=== PATIENT | female | born 1955 | race Caucasian/White ===

== ENCOUNTER 2018-08-02 15:44 | Emergency (ER) | payer OTHER ==
[~2018-08-02] VITALS: Ht 152.4 cm; Wt 59.0 kg
[2018-08-02] MEDS ORDERED: CLINDAMYCIN 600MG / 50ML 50 ML IV ONE (15:56)
[2018-08-02] MEDS ORDERED: SODIUM CHLORIDE 0.9% 1000ML 1,000 ML IV STA (15:56)
[2018-08-02] MEDS ORDERED: MORPHINE SULFATE INJ 4 MG/ML INJ 1ML IV ONE (15:56)
[2018-08-02 16:18] LABS: BASOPHILS # (AUTO) 0.1 (0.0-0.1); BASOPHILS % 0.4 % (0.0-1.0); EOSINOPHILS # (AUTO) 0.1 (0.0-0.4); EOSINOPHILS % 0.8 % (0.0-6.0); HEMATOCRIT 43.6 % (34.2-44.1); HEMOGLOBIN 14.7 g/dL (12.0-16.0); LYMPHOCYTES # (AUTO) 2.6 (1.0-3.2); LYMPHOCYTES % 21.1 % (18.0-39.1); MEAN CORPUSCULAR HGB CONC 33.7 g/dL (31-35); MONOCYTES % 8.3 % (4.4-11.3); NEUTROPHILS # (AUTO) 8.6 (2.1-6.9); NEUTROPHILS % 69.1 % (38.7-80.0); PLATELET COUNT 248 x10e3/uL (140-360); RED BLOOD COUNT 4.45 x10e6/uL (3.6-5.1)
[2018-08-02 16:35] LABS: ALANINE AMINOTRANSFERASE 7 IU/L (0-55); ALBUMIN 4.2 g/dL (3.5-5.0); ALBUMIN/GLOBULIN RATIO 1.2 (0.8-2.0); ALKALINE PHOSPHATASE 152 IU/L (40-150); ANION GAP 15.1 mmol/L (8-16); BLOOD UREA NITROGEN 17 mg/dL (7-26); BUN/CREATININE RATIO 21 (6-25); CALCIUM 9.5 mg/dL (8.4-10.2); CARBON DIOXIDE 24 mmol/L (22-29); CHLORIDE 102 mmol/L (98-107); EST GLOMERULAR FILTRATION RATE > 60 ML/MIN (60-); GLUCOSE 113 mg/dL (74-118); POTASSIUM 4.1 mmol/L (3.5-5.1); SODIUM 137 mmol/L (136-145)
--- NOTE | 2018-08-02 17:40 | Diagnostic Imaging Report ---
History: Nasal abscess Comparison studies: None Technique: Axial images were obtained through the facial region. Coronal and sagittal images reconstructed from the axial data. Dose modulation, iterative reconstruction, and/or weight based adjustment of the mA/kV was utilized to reduce the radiation dose to as low as reasonably achievable. Radiation dose: Total DLP: 380 mGy*cm. Estimated effective dose: DLP x 0.015 Intravenous contrast: 100 cc of Isovue-370. Findings: Soft tissues: Peripherally enhancing 11 mm fluid collection consistent with abscess along the left nasolabial angle, just beneath a left nostril with regional surrounding reactive soft tissue thickening compatible cellulitis. Paranasal sinuses: Mild scattered nonspecific inflammatory mucosal thickening in bilateral ethmoid and sphenoid sinuses. The bilateral maxillary ostia and sphenoethmoidal recesses are narrowed by mucosal thickening. Bilateral frontoethmoidal recesses are patent. Bones: No fractures or bony abnormalities. Orbits: Bilateral lens replacements for previous cataract surgery. No other abnormalities. Included cervical spine: Partially imaged changes of anterior cervical discectomy and fusion (ACDF) at C5-C6. IMPRESSION: Superficial 11 mm abscess at the left nasolabial angle inferior to the left nostril with mild surrounding cellulitis. Signed by: Dr. Terence Wilson M.D. on 08/02/2018 5:37 PM
[2018-08-02] MEDS ORDERED: SODIUM CHLORIDE 0.9% 50ML 50 ML ONE (21:44)
[2018-08-02] MEDS ORDERED: IOPAMIDOL 370 MG/ML 200 ML INFUS..BTL INJ ONE (21:45)
== END 2018-08-02 19:05 | disposition home or self-care (01) ==
LOC: ER 15:44
DX: J34.0 Abscess, furuncle and carbuncle of nose (principal); E11.9 Type 2 diabetes mellitus without complications; E78.5 Hyperlipidemia, unspecified; J44.9 Chronic obstructive pulmonary disease, unspecified; Z88.8 Allergy status to other drugs, medicaments and biological substances
CPT/HCPCS: 36415; 70487; 80053; 83605; 85025; 87040; 87071; 87186; 87205; 99284; J2270; J7030; Q9967

== ENCOUNTER 2018-09-30 05:18 | Observation (INO) | payer OTHER ==
--- NOTE | 2018-09-28 14:10 | Diagnostic Imaging Report ---
EXAMINATION: CHEST 2 VIEWS INDICATION: Pre-operative COMPARISON: None FINDINGS: TUBES and LINES: None. LUNGS: The lung volumes are normal. No focal consolidation or pulmonary edema. Right lower lobe calcified granuloma. PLEURA: No pleural effusion or pneumothorax. HEART AND MEDIASTINUM: The cardiomediastinal silhouette is normal in size and contour. BONES AND SOFT TISSUES: No acute fracture or dislocation. UPPER ABDOMEN: No free air under the diaphragm. IMPRESSION: No focal pneumonia or pulmonary edema. Signed by: Wilda Macedo MD on 09/28/2018 2:07 PM
[2018-09-28 14:13] LABS: BASOPHILS % 0.5 % (0.0-1.0); EOSINOPHILS # (AUTO) 0.1 (0.0-0.4); EOSINOPHILS % 0.6 % (0.0-6.0); HEMATOCRIT 42.9 % (34.2-44.1); LYMPHOCYTES # (AUTO) 1.7 (1.0-3.2); LYMPHOCYTES % 21.4 % (18.0-39.1); MEAN CORPUSCULAR HEMOGLOBIN 32.2 pg (28-32); MEAN CORPUSCULAR HGB CONC 32.6 g/dL (31-35); MEAN CORPUSCULAR VOLUME 98.6 fL (81-99); MONOCYTES # (AUTO) 0.6 (0.2-0.8); MONOCYTES % 7.6 % (4.4-11.3); NEUTROPHILS # (AUTO) 5.6 (2.1-6.9); NEUTROPHILS % 69.5 % (38.7-80.0); PLATELET COUNT 259 x10e3/uL (140-360); RED BLOOD COUNT 4.35 x10e6/uL (3.6-5.1); RED CELL DISTRIBUTION WIDTH 12.1 % (11.7-14.4)
[2018-09-28 14:31] LABS: INR 0.84
[2018-09-28 14:32] LABS: PARTIAL THROMBOPLASTIN TIME 30.5 seconds (23.8-35.5)
[2018-09-28 14:36] LABS: ANION GAP 14.2 mmol/L (8-16); BLOOD UREA NITROGEN 14 mg/dL (7-26); BUN/CREATININE RATIO 22 (6-25); CALCIUM 9.4 mg/dL (8.4-10.2); CARBON DIOXIDE 27 mmol/L (22-29); CHLORIDE 102 mmol/L (98-107); CREATININE, SERUM 0.65 mg/dL (0.57-1.11); EST GLOMERULAR FILTRATION RATE > 60 ML/MIN (60-); GLUCOSE 96 mg/dL (74-118); POTASSIUM 4.2 mmol/L (3.5-5.1); SODIUM 139 mmol/L (136-145)
[2018-09-30] VITALS (7 sets, daily range): BP systolic 97–141; BP diastolic 52–68
[~2018-09-30] VITALS: Ht 152.4 cm; Wt 59.4 kg
[~2018-09-30 05:18] MED LIST: ADVAIR 100-501 EACH INH; BUTALB-CAFF-AC1 EACH PO; CALCIUM PO; CRESTOR10 MG PO; MELATONIN3 MG PO; METFORMIN HCL500 MG PO; NEXIUM40 MG PO; SPRIVIA INH; VENTOLIN HFA18 GM INH; [UNRECOGNIZED DRUG - OTHER] PO
--- OUTSIDE RECORDS SUMMARY | 2018-09-30 05:34 | XMS REPORT ---
Author Author [facility] Address Unknown Phone Unavailable Care Team Providers Care Quality Control Tech [employer] Name Role Phone MANJINDER BAKER Unavailable Unavailable Bharat CAMERON Unavailable Unavailable Problems This patient has no known problems. Allergies, Adverse Reactions, Alerts This patient has no known allergies or adverse reactions. Medications This patient has no known medications. Results Test Description Test Time Test Comments Text Results Atomic Results Result Comments CHEST 2 VIEWS 2018-09-28 14:06:00 [facility] [address] [address] Patient Name: ROSE TOVAR MR #: [id number] : 1955 Age/Sex: 62/F Req #: [id number] Adm Physician: Ordered by: MANJINDER BAKER MD Report #: [id number] Location: OR Room/Bed: Procedure: [id number] DX/CHEST 2 VIEWS Exam Date: 09/28/18 Exam Time: 1335 REPORT STATUS: Signed EXAMINATION: CHEST 2 VIEWS INDICATION: Pre-operative COMPARISON: None FINDINGS: TUBES and LINES: None. LUNGS: The lung volumes are normal. No focal consolidation or pulmonary edema. Right lower lobe calcified granuloma. PLEURA: No pleural effusion or pneumothorax. HEART AND MEDIASTINUM: The cardiomediastinal silhouette is normal in size and contour. BONES AND SOFT TISSUES: No acute fracture or dislocation. UPPER ABDOMEN: No free air under the diaphragm. IMPRESSION: No focal pneumonia or pulmonary edema. Signed by: Barrington Alexis MD on 09/28/2018 2:07 PM Dictated By: BARRINGTON ALEXIS MD 06 Transcribed By: ANNALISA on 09/28/181406 COPY TO: MANJINDER BAKER MD CT MAX FAC/PARANASAL W 2018-08-02 17:24:00 [address] [address] Patient Name: ROSE TOVAR MR #: [id number] : 1955 Age/Sex: 62/F Req #: [id number] Adm Physician: Ordered by: STEVAN RAMIREZ NP Report #: [id number] Location: ER Room/Bed: Procedure: [id number] CT/CT MAX FAC/PARANASAL W Exam Date: 08/02/18 Exam Time: 1704 REPORT STATUS: Signed History: Nasal abscess Comparison studies: None Technique: Axial images were obtained through the facial region. Coronal and sagittal images reconstructed from the axial data. Dose modulation, iterative reconstruction, and/or weight based adjustment of the mA/kV was utilized to reduce the radiation dose to as low as reasonably achievable. Radiation dose: Total DLP: 380 mGy*cm. Estimated effective dose: DLP x 0.015 In travenous contrast: 100 cc of Isovue-370. Findings: Soft tissues: Peripherally enhancing 11 mm fluid collection consistent with abscess along the left nasolabial angle, just beneath a left nostril with regional surrounding reactive soft tissue thickening compatible cellulitis. Paranasal sinuses: Mild scattered nonspecific inflammatory mucosal thickening in bilateral ethmoid and sphenoid sinuses. The bilateral maxillary ostia and sphenoethmoidal recesses are narrowed by mucosal thickening. Bilateral frontoethmoidal recesses are patent. Bones: No fractures or bony abnormalities. Orbits: Bilateral lens replacements for previous cataract surgery. No other abnormalities. Included cervical spine: Partially imaged changes of anterior cervical discectomy and fusion (ACDF) at C5-C6. IMPRESSION: Superficial 11 mm abscess at the left nasolabial angle inferior to the left nostril with mild surrounding cellulitis. Signed by: Dr. Drew Wilson M.D. on 08/02/2018 5:37 PM Dictated By: DREW WILSON MD 1737 Transcribed By: ANNALISA on 08/02/181736 COPY TO: STEVAN RAMIREZ NP
[2018-09-30] MEDS ORDERED: CEFAZOLIN SOD 1 GM/NS 50ML 50 ML IV ONE (06:12)
[2018-09-30] MEDS ORDERED: BUPIVACAINE 0.5%/EPI 30 ML SDV INJ ONE (06:30)
[2018-09-30] MEDS ORDERED: THROMBIN FOR SOLN 5,000 UNIT VIAL ONE (06:30)
[2018-09-30] MEDS ORDERED: BACITRACIN 50,000 UNIT VIAL ONE (06:30)
[2018-09-30] MEDS ORDERED: IBUPROFEN 800MG/ 250ML 250 ML IV ONE (07:08)
[2018-09-30] MEDS ORDERED: LIDOCAINE HCL (LTA) 4 ML SOLN ONE (07:08)
[2018-09-30] MEDS ORDERED: ACETAMINOPHEN 1000 MG/100 ML 100 ML IV ONE (07:08)
--- NOTE | 2018-09-30 07:10 | NUR ---
SPIRITUAL CARE - Pre-Surgery Assessment: Pt in bed. Pt's at bedside. Pt reported supportive attention from family and friends. Intervention: I provided pastoral presence, hospitality, and sympathetic listening. I acquainted pt with availability of rolls mill operator while hospitalized. Outcome: Pt expressed appreciation for visit. No need for follow up indicated at this time. J[facility] Spiritual Care Department O: [phone] Pager: [phone] ([phone] number calling from)
[2018-09-30] MEDS: LACTATED RINGER'S 1,000 ML IV SCH ×2 (09:14→17:34)
[2018-09-30] MEDS ORDERED: ZOLPIDEM TARTRATE 5 MG TAB PO PRN (09:15)
[2018-09-30] MEDS ORDERED: ALBUTEROL SULFATE HFA 8GM INHALATION AEROSOL INH SCH (09:15)
[2018-09-30] MEDS ORDERED: CEPACOL SORE THROAT LOZENGES PO PRN (09:15)
[2018-09-30] MEDS ORDERED: MAGNESIUM/ALUMINUM/SIMETHICONE 30 ML UDC PO PRN (09:15)
[2018-09-30] MEDS ORDERED: ONDANSETRON HCL INJ 2MG/ML 2ML 2 MG/ML VIAL IV PRN (09:15)
[2018-09-30] MEDS ORDERED: ACETAMINOPHEN 325 MG TAB PO PRN (09:15)
[2018-09-30] MEDS ORDERED: HYDROMORPHONE 2MG/ML 2 MG/ML ML IV PRN (09:15)
[2018-09-30] MEDS ORDERED: PROMETHAZINE HCL (IM) 25 MG/ML VIAL IM PRN (09:15)
[2018-09-30] MEDS ORDERED: FENTANYL CITRATE/PF 100MCG/2 ML INJ ONE ×2 (09:30→18:34)
--- NOTE | 2018-09-30 10:25 | NUR ---
Patient admitted to unit from PACU. Patient is post op cervical spine fusion. Soft collar in place with dressing to right side clean and dry. Lung lucio clear to auscultation. Bowel sounds present x4 but hypoactive. Patient ambulates on her own. No c/o pain at this time. Left AC IV in place. Patient voided as soon as she arrived to room.
[2018-09-30] MEDS: OXYCODONE/ACETAMINOPHEN 5-325 1 EACH TABLET PO PRN ×2 (13:00→17:22)
[2018-09-30] MEDS: CARISOPRODOL 350 MG TAB PO PRN ×2 (13:00→17:22)
[2018-09-30] MEDS: CEFAZOLIN SOD 1 GM/NS 50ML 50 ML IV SCH ×2 (13:44→21:08)
--- NOTE | 2018-09-30 15:48 | Operative Report ---
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 PROCEDURES: 1. C6-7 anterior cervical diskectomy and microsurgical osteophyte resection and allograft fusion, 42267. 2. Preparation of MTF corticocancellous allograft, 49026. 3. C6-7 anterior cervical plating with Synthes ZPN plate, 37790. 4. Removal of old C5-6 plate, 49175. 5. Exploration of C5-6 fusion, . ANESTHESIA: General. INDICATIONS: The patient is a woman who has previously undergone C5-6 anterior cervical diskectomy and fusion and plating by oh in the distant past. She now presents with a C6-7 disk herniation with left C7 radiculopathy below the level of her previous C5-6 fusion. She was taken to the operating room for a C6-7 ACDF and removal of the C5-6 plate. DESCRIPTION OF PROCEDURE: After induction of general anesthesia, the patient was placed on the operating table in supine position. The right side of neck was prepped and draped in sterile fashion. The fluoroscopic C-arm was positioned in cross-table lateral orientation. A small transverse incision was created on the right side of neck overlying her previous incision scar. The platysma was divided in line with the incision. A subplatysmal dissection was carried out and avascular plane of dissection was developed medial to the sternocleidomastoid muscle was followed medial to the carotid sheath to the anterior border of the cervical spine. The scar layer overlying the previous C5-6 plate was incised and the plate was exposed. The esophagus was retracted to the left. Each of the four locking screws and each of the four bone screws within the previous C5-6 plate were unscrewed and removed. The plate was mobilized and removed. The underlying C5-6 fusion was explored and found to be solid. Attention was directed to the C6-7 segment. The anterior osteophyte was resected with the [place] rongeur. [place] posts were inserted into C6 and C7 and the [place] distractor was used to distract the disk space. The anterior anulus of the disk was incised with a #11 blade. The contents of the disks were thoroughly evacuated with curettes and pituitary rongeurs. The posterior osteophytes were meticulously drilled with a 2 mm cutting bur on a high-speed drill under the operating microscope until they were completely removed. The posterior anulus of the disk, herniated disk material, and the posterior longitudinal ligament were resected layer by layer until the dura was fully exposed and decompressed. The medial aspects of the uncinate processes were resected bilaterally with particular attention given to the left side to fully expose any compressed origins of the corresponding nerve roots after a large amount of herniated disk material was retrieved and removed from the left C7 neural foramen in this process. After satisfactory decompression had been achieved, the endplates were prepared for fusion. A piece of MTF corticocancellous allograft measuring 9 mm in thickness was selected and prepared in saline and loaded onto a corresponding Synthes ZPN plate. The construct was inserted into the C6-7 disk space under distraction and fluoroscopic guidance. The distraction was released and distraction posts were removed. The plate was screwed to the endplates of C6 and C7 with two pairs of 14 mm screws. All screws were locked. An excellent construct was obtained. The wound was copiously irrigated with bacitracin solution. Meticulous hemostasis was secured. The retractor was removed. The platysma was closed with 3-0 Vicryl sutures. The skin was closed with 4-0 Monocryl sutures in subcuticular fashion. Steri-Strips and dressing were applied. The patient was awakened, extubated, and taken to postanesthesia care unit in stable condition. No intraoperative complications were encountered. The estimated blood loss was 20 mL. Cipriano Gramajo MD PP/[place] /[id number]
[2018-09-30] MEDS: METFORMIN HCL 500 MG TAB PO SCH (17:21)
[2018-09-30] MEDS ORDERED: ONDANSETRON HCL INJ 2MG/ML 2ML 2 MG/ML VIAL ONE (17:39)
[2018-09-30] MEDS ORDERED: GLYCOPYRROLATE 1 MG TAB ONE (17:39)
[2018-09-30] MEDS ORDERED: LIDOCAINE HCL 2% JELLY 5 ML TUBE ONE (17:39)
[2018-09-30] MEDS ORDERED: NEOSTIGMINE 5 MG/5ML SYR ONE (17:39)
[2018-09-30] MEDS ORDERED: DEXAMETHASONE SOD PHOS INJ 4 MG/ML VIAL ONE (18:34)
[2018-09-30] MEDS ORDERED: ACETAMINOPHEN 1000 MG/100 ML IV ONE (18:34)
[2018-09-30] MEDS ORDERED: PROPOFOL IV EMULSION 10 MG/ML 20 ML VIAL ONE (18:34)
[2018-09-30] MEDS ORDERED: ROCURONIUM BROMIDE 10 MG/ML 5ML VIAL ONE (18:34)
[2018-09-30] MEDS ORDERED: MIDAZOLAM HCL 2 MG/2 ML VIAL ONE (18:34)
[2018-09-30] MEDS ORDERED: LIDOCAINE HCL 2% LOCAL INJ 5 ML SDV VIAL INJ ONE (18:34)
[2018-09-30] MEDS ORDERED: SEVOFLURANE INHAL SOLN 250 ML PEN BTL ONE (18:34)
--- NOTE | 2018-09-30 18:55 | NUR ---
BEDSIDE SHIFT REPORT PERFORMED, RECEIVED PT (L) SIDE LAYING SEMI FOWLERS IN BED, AAOX3, RR EVEN AND NON-LABORED, ON ROOM AIR. SOFT COLLAR TO NECK IN PLACE, DRESSING TO (R) ANTERIOR NECK NOTED TO BE CDI. LEFT PT LAYING SEMI FOWLERS IN BED, BED IN LOW LOCKED POSITION, SIDE RAILS UPX2, CALL LIGHT AND PHONE WITHIN REACH.
[2018-09-30] MEDS: SALMETEROL/FLUTICASONE 100/50 INH SCH (19:00)
[2018-09-30] MEDS ORDERED: MELATONIN 3 MG TAB PO SCH (21:00)
[2018-09-30] MEDS ORDERED: SIMVASTATIN 20 MG TAB PO SCH (21:00)
[2018-09-30] MEDS: MORPHINE SULFATE INJ 10 MG/ML IM PRN (21:00)
[2018-10-01] VITALS: BP 102/59
[2018-10-01] MEDS: SALMETEROL/FLUTICASONE 100/50 INH SCH ×2 (00:49→06:42)
[2018-10-01] MEDS: MORPHINE SULFATE INJ 10 MG/ML IM PRN ×2 (01:05→04:34)
[2018-10-01] MEDS ORDERED: NORCO 7.5-3251 EACH PO ×2 (01:24→07:39)
[2018-10-01] MEDS: LACTATED RINGER'S 1,000 ML IV SCH (01:54)
[2018-10-01 04:00] VITALS: BP 104/49
[2018-10-01] MEDS ORDERED: TIOTROPIUM 18 MCG INH POWDER INH SCH (06:00)
[2018-10-01] MEDS: CEFAZOLIN SOD 1 GM/NS 50ML 50 ML IV SCH (06:09)
[2018-10-01] MEDS: OXYCODONE/ACETAMINOPHEN 5-325 1 EACH TABLET PO PRN (06:10)
[2018-10-01] MEDS: CARISOPRODOL 350 MG TAB PO PRN (06:10)
--- NOTE | 2018-10-01 06:40 | NUR ---
rounded with proofreader nurse, patient leaving unit for xray. alert and oriented and in no distress
--- NOTE | 2018-10-01 07:34 | Diagnostic Imaging Report ---
Radiographs of the cervical spine - 2 views HISTORY: Pain COMPARISON: June 02, 2008 FINDINGS: Bones: No acute displaced fracture. Osseous alignment is within normal limits. Joints: Patient status post anterior fusion at C6/7 with intervertebral body spacer material. The surgical hardware is intact without evidence of failure or loosening. Scattered degenerative change. Soft tissues: The soft tissues appear unremarkable. IMPRESSION: Patient status post anterior fusion at C6/7 with intervertebral body spacer material. The surgical hardware is intact without evidence of failure or loosening. Scattered degenerative change. Signed by: Dr. Darrick Garcia M.D. on 10/01/2018 7:30 AM
[2018-10-01 08:05] VITALS: BP 112/56
[2018-10-01] MEDS: METFORMIN HCL 500 MG TAB PO SCH (08:05)
[2018-10-01 08:24] VITALS: BP 112/56
[2018-10-01] MEDS ORDERED: SIMVASTATIN 40 MG TAB PO SCH (09:00)
[2018-10-01] MEDS ORDERED: [UNRECOGNIZED DRUG - OTHER] PO SCH (09:00)
[2018-10-01] MEDS ORDERED: CALCIUM PO SCH (09:00)
[2018-10-01] MEDS ORDERED: PANTOPRAZOLE SOD 40 MG TABEC PO SCH (09:00)
--- NOTE | 2018-10-01 09:15 | NUR ---
patient alert and oriented. discharge instructions given at this time, patient verbalized understanding. IV discontinued, catheter in tact and small dressing applied. patient to be wheeled out to personal auto for to drive home.
== END 2018-10-01 09:20 | disposition home or self-care (01) ==
LOC: OR 05:18 → PACU V 09:15 → MED/SURG 10:37
PROVIDERS: ADMIT Neurological Surgery; ATTEND Neurological Surgery
DX: M50.123 Cervical disc disorder at C6-C7 level with radiculopathy (principal)
CPT/HCPCS: 20931; 22551; 36415 ×3; 71046; 72040; 77003; 80048; 82948 ×2; 85025; 85610; 85730; 86850; 86900; 88300; 88304; 93005; G0378 ×2; J0131; J0690 ×2; J1100 ×2; J2001 ×2; J2250; J2270 ×2; J2405 ×2; J2704; J3010; S0164; C1713; C9359

== ENCOUNTER 2018-11-04 09:05 | Outpatient (RCR) | payer OTHER ==
[~2018-11-04 09:05] MED LIST changes: +NORCO 7.5-3251 EACH PO
== END 2018-11-06 ==
LOC: PT 09:05
PROVIDERS: ATTEND Neurological Surgery
DX: M50.123 Cervical disc disorder at C6-C7 level with radiculopathy (principal); M62.81 Muscle weakness (generalized); M53.82 Other specified dorsopathies, cervical region

== ENCOUNTER 2018-12-03 14:00 | Outpatient (RCR) | payer OTHER | END 2018-12-06 | LOC: PT 14:00 | PROVIDERS: ATTEND Neurological Surgery | DX: M50.123 Cervical disc disorder at C6-C7 level with radiculopathy (principal) ==

== ENCOUNTER 2022-08-23 20:23 | Emergency (ER) | payer MEDICARE, OTHER ==
[~2022-08-23] VITALS: Ht 152.4 cm; Wt 60.8 kg
[2022-08-23] MEDS ORDERED: SODIUM CHLORIDE 0.9% 1000ML 1,000 ML IV STA (21:12)
[2022-08-23 21:20] LABS: BASOPHILS # (AUTO) 0.1 (0.0-0.1); BASOPHILS % 0.8 % (0.0-1.0); EOSINOPHILS # (AUTO) 0.4 (0.0-0.4); EOSINOPHILS % 4.8 % (0.0-6.0); HEMATOCRIT 37.6 % (34.2-44.1); HEMOGLOBIN 11.8 g/dL (12.0-16.0); LYMPHOCYTES % 24.2 % (18.0-39.1); MEAN CORPUSCULAR HEMOGLOBIN 31.4 pg (28-32); MEAN CORPUSCULAR HGB CONC 31.4 g/dL (31-35); MONOCYTES # (AUTO) 0.7 (0.2-0.8); NEUTROPHILS % 60.6 % (38.7-80.0); PLATELET COUNT 253 x10e3/uL (140-360); RED BLOOD COUNT 3.76 x10e6/uL (3.6-5.1); RED CELL DISTRIBUTION WIDTH 12.6 % (11.7-14.4)
[2022-08-23 21:43] LABS: ALANINE AMINOTRANSFERASE < 6 IU/L (0-55); ALBUMIN 3.4 g/dL (3.5-5.0); ALBUMIN/GLOBULIN RATIO 0.9 (0.8-2.0); ALKALINE PHOSPHATASE 111 IU/L (40-150); BLOOD UREA NITROGEN 14 mg/dL (7-26); BUN/CREATININE RATIO 22 (6-25); CALCIUM 8.4 mg/dL (8.4-10.2); CARBON DIOXIDE 32 mmol/L (22-29); CHLORIDE 104 mmol/L (98-107); CREATINE KINASE 121 IU/L (29-168); CREATININE, SERUM 0.64 mg/dL (0.57-1.11); GLUCOSE 95 mg/dL (74-118); SODIUM 142 mmol/L (136-145)
[2022-08-23 21:57] LABS: AMPHETAMINES SCREEN,URINE NEGATIVE (NEGATIVE); BENZODIAZEPINES SCREEN,URINE POSITIVE (NEGATIVE); CLARITY,URINE CLEAR (CLEAR); COLOR,URINE YELLOW (YELLOW); KETONES,URINE NEGATIVE (NEGATIVE); LEUKOCYTE ESTERASE ,URINE NEGATIVE (NEGATIVE); NITRITE,URINE NEGATIVE (NEGATIVE); PHENCYCLIDINE SCREEN,URINE NEGATIVE (NEGATIVE); PROTEIN,URINE DIPSTICK NEGATIVE (NEGATIVE); URINE UROBILINOGEN 0.2 mg/dL (0.2 - 1)
[2022-08-23 22:03] LABS: BACTERIA,URINE FEW /HPF; EPITHELIAL CELLS,URINE MODERATE /LPF
[2022-08-23 22:04] LABS: MUCUS,URINE MODERATE (RARE)
[2022-08-23] MEDS ORDERED: KETOROLAC TROMETHAMINE 30 MG/ML VIAL IV STA (23:33)
[2022-08-23] MEDS ORDERED: METOCLOPRAMIDE HCL 10 MG/2ML VIAL IV STA (23:50)
[2022-08-23] MEDS ORDERED: DIPHENHYDRAMINE HCL INJ 50 MG/ML VIAL ONE (23:56)
[2022-08-23] MEDS ORDERED: METOCLOPRAMIDE HCL 10 MG/2ML VIAL ONE (23:56)
[2022-08-24] MEDS ORDERED: DIPHENHYDRAMINE HCL INJ 50 MG/ML VIAL IV ONE
[2022-08-24] MEDS ORDERED: IOPAMIDOL 370 MG/ML 100 ML INFUS..BTL INJ ONE (00:24)
[2022-08-24 02:06] VITALS: BP 133/84; PULSE 69; RESP 16; TEMP 98.3; O2SAT 94
== END 2022-08-24 01:40 | disposition home or self-care (01) ==
LOC: ER 20:30
DX: R06.02 Shortness of breath (principal); M54.50 Low back pain, unspecified; G89.29 Other chronic pain; R51.9 Headache, unspecified; R10.10 Upper abdominal pain, unspecified; F15.10 Other stimulant abuse, uncomplicated; Z20.822 Contact with and (suspected) exposure to COVID-19
CPT/HCPCS: 36415; 70450; 71045; 72100; 74177; 80053; 80307; 80320; 81001; 82550; 83880; 84484; 85025; 93005; 99284; J1200; J1885; J2765; J7030; Q9967; U0002